=== PATIENT | male | born 1965 | race African-American/Black ===

== ENCOUNTER 2018-01-19 20:07 | Emergency (ER) | payer SELFPAY, OTHER | END 2018-01-19 21:02 | disposition home or self-care (01) | LOC: ER 21:02 | DX: N49.2 Inflammatory disorders of scrotum (principal) | CPT/HCPCS: 99283 ==

== ENCOUNTER 2018-09-11 09:37 | Emergency (ER) | payer SELFPAY ==
[~2018-09-11] VITALS: Ht 170.2 cm; Wt 65.3 kg
[~2018-09-11 09:37] MED LIST: CEPH-263 PO; CEPH500T PO; HYDR-2758 PO; HYDR-2762 PO; SULF1TAB24 PO
[2018-09-11 10:12] VITALS: BP 118/79
[2018-09-11] MEDS ORDERED: LIDOCAINE 1% Multi-Dose 20 ML VIAL. INJ ONE (10:45)
[2018-09-11] MEDS ORDERED: IBUP-1060 PO (11:37)
[2018-09-11] MEDS ORDERED: HYDR-971 PO (11:37)
[2018-09-11] MEDS ORDERED: SULF1TAB24 PO (11:37)
--- NOTE | 2018-09-11 16:41 | PHYS DOC ---
Past Medical History Past Medical History: No Pertinent History Past Surgical History: Other Additional Past Surgical Histo: left knee, left ankle Alcohol Use: Heavy Drug Use: None Adult General Chief Complaint Chief Complaint: BREAST PROBLEM HPI HPI Patient is a 53 year old male who presents with abscess on the chest wall. Patient has had pain and swelling over the anterior chest just beneath the right nipple over the last 2-3 days. He does have a prior history of abscess in the same location for which she has required incision and drainage previously. Today he complains primarily worsening pain and swelling. No fevers. Review of Systems Review of Systems Constitutional: Denies fever Eyes: Denies HENT: Denies Respiratory: Denies Musculoskeletal: Denies back pain Integument: Denies rash Neurologic: Denies headache Endocrine: Denies polyuria or polydipsia All other systems were reviewed and found to be within normal limits, except as documented in this note. Current Medications Current Medications Current Medications Medications (Trade) Dose Ordered Sig/Quiana Start Time Stop Time Status Last Admin Dose Admin Lidocaine HCl (Lidocaine 1% 20ml Vial) 20 ml 1X ONCE 09/11/18 10:45 09/11/18 10:46 DC 09/11/18 10:45 20 ML Allergies Allergies Allergies Coded Allergies Type Severity Reaction Last Updated Verified No Known Drug Allergies 11/01/16 No Physical Exam Physical Exam Constitutional: Well developed, well nourished, no acute distress, non-toxic appearance HENT: Normocephalic, atraumatic, bilateral external ears normal, oropharynx moist Neck: Normal range of motion Cardiovascular:Heart rate regular Skin: Warm, dry, no erythema, no rash, approximately 2-3 cm area of fluctuance under the right nipple and inferior to the nipple. There is local cellulitis. There is no nipple discharge. The wound is not draining. Extremities: No tenderness Neurologic: Alert and oriented X 3 Psychologic: Affect normal Current Patient Data Vital Signs Vital Signs Date Time Temp Pulse Resp B/P (MAP) Pulse Ox O2 Delivery O2 Flow Rate FiO2 09/11/18 10:12 97.9 94 17 118/79 (92) 100 Room Air 97.9 EKG EKG [] Radiology/Procedures Radiology/Procedures [] Course & Med Decision Making Course & Med Decision Making Pertinent Labs and Imaging studies reviewed. (See chart for details) Patient was evaluated in the emergency department for an abscess described above. See the procedure note below. Procedure was completed without difficulty. Patient was discharged to home with medications for pain and antibiotics. He was advised to come back in the next 48 hours to the ER for recheck of the wound. Patient understood the plan of care and was agreeable. His prescribed Jenkins and ibuprofen for pain along with Bactrim. Procedure note: Incision and drainage of abscess. The area was cleansed with iodine. Local anesthesia was provided with 2 mL of 1% lidocaine. A #11 blade scalpel was used to make a 0.5 cm incision at the head of the abscess. There was copious return of purulent fluid. The wound was then marsupialized with curved hemostats. There were several pockets of fluid which were accessed. The wound was then irrigated with normal saline until clear. No packing was placed today. Patient tolerated well. Dragon Disclaimer Dragon Disclaimer This electronic medical record was generated, in whole or in part, using a voice recognition dictation system. Departure Departure Impression: Primary Impression: Acute abscess of areola Disposition: 01 HOME, SELF-CARE Condition: GOOD Referrals: JAYRO SUN MD (PCP) Patient Instructions: Incision and Drainage, Care After, Abscess, Care After Scripts Ibuprofen (IBUPROFEN) 800 Mg Tablet 800 MG PO PRN TID PRN for MODERATE PAIN, #20 TAB take with food or milk to avoid upsetting stomach Prov: BOYD CAROLINA DO 09/11/18 Hydrocodone/Apap 5-325 (NORCO 5-325 TABLET) 1 Each Tablet 1-2 EACH PO PRN Q6HRS PRN for severe pain, #20 as needed for pain Prov: BOYD CAROLINA DO 09/11/18 Sulfamethoxazole/Trimethoprim (BACTRIM DS TABLET) 1 Each Tablet 1 TAB PO BID, #20 TAB Prov: BOYD CAROLINA DO 09/11/18 BOYD CAROLINA DO Sep 11, 2018 16:41
== END 2018-09-11 11:53 | disposition home or self-care (01) ==
LOC: ER 09:37
DX: N61.1 Abscess of the breast and nipple (principal); L02.213 Cutaneous abscess of chest wall; F10.20 Alcohol dependence, uncomplicated; Y90.9 Presence of alcohol in blood, level not specified
CPT/HCPCS: 10060; 99283

== ENCOUNTER 2020-02-07 11:27 | Emergency (ER) | payer SELFPAY ==
[~2020-02-07] VITALS: Ht 170.2 cm; Wt 58.2 kg
[~2020-02-07 11:27] MED LIST changes: -HYDR-2758 PO; +HYDR-2761 PO; -HYDR-2762 PO; +HYDR-2765 PO; +HYDR-3164 PO; +IBUP-1060 PO
[2020-02-07 11:31] VITALS: BP 132/95
[2020-02-07] MEDS ORDERED: DIPH,PERTUSS(ACELL),TET VAC/PF 0.5 ML SYRINGE. VAX IM ONE ×2 (11:46→12:00)
--- NOTE | 2020-02-07 11:51 | PHYS DOC ---
Past Medical History Past Medical History: No Pertinent History Past Surgical History: Other Additional Past Surgical Histo: left knee, left ankle Smoking Status: Never Smoker Alcohol Use: Heavy Drug Use: None General Adult EDM: Chief Complaint: SKIN RASH/ABSCESS HPI: HPI: Patient is a 54 year old AA male who presents to the emergency department with complaints of a dog bite and rash to his left anterior thigh. Patient states that he was bit by a dog three and a half weeks ago on the left anterior thigh. Pt reports the area has been draining yellow pus. He states that the area was also very itchy for the last 4-5 days so he has been scratching at it. He denies any fever, numbness, or tingling. Pt denies any pain at this time. Pt is unsure of when he last tetanus shot was. Pt states that he noticed the rash 4 days ago after scratching it. Review of Systems: Review of Systems: Complete ROS is negative unless otherwise noted in HPI. Heart Score: Risk Factors: Risk Factors: DM, Current or recent (<one month) smoker, HTN, HLP, family history of CAD, obesity. Risk Scores: Score 0 - 3: 2.5% MACE over next 6 weeks - Discharge Home Score 4 - 6: 20.3% MACE over next 6 weeks - Admit for Clinical Observation Score 7 - 10: 72.7% MACE over next 6 weeks - Early Invasive Strategies Allergies: Allergies: Allergies Coded Allergies Type Severity Reaction Last Updated Verified No Known Drug Allergies 11/01/16 No Physical Exam: PE: Constitutional: Well developed, well nourished, no acute distress, non-toxic appearance. [] HENT: Normocephalic, atraumatic, bilateral external ears normal, nose normal. [] Eyes: PERRLA, EOMI, conjunctiva normal, no discharge. [] Neck: Normal range of motion, no stridor. [] Cardiovascular:Heart rate regular rhythm Lungs & Thorax: Respirations even and unlabored, no retractions, no respiratory distress Skin: Warm, dry; 2 puncture wounds to the left anterior thigh with surrounding erythema and purulent drainage, surrounding erythremic maculopapular rash consistent with folliculitis to anterior left thigh. Extremities: LLE:No bony tenderness, no cyanosis, ROM intact, no edema, PMS intact Neurologic: Alert and oriented X 3, no focal deficits noted. [] Psychologic: Affect normal, judgement normal, mood normal. [] EKG: EKG: [] Radiology/Procedures: Radiology/Procedures: [] Course & Med Decision Making: Course & Med Decision Making Pertinent Labs and Imaging studies reviewed. (See chart for details) [] Dragon Disclaimer: Dragon Disclaimer: This electronic medical record was generated, in whole or in part, using a voice recognition dictation system. Departure Departure Impression: Primary Impression: Dog bite of left thigh with infection Qualified Codes: S71.152A - Open bite, left thigh, initial encounter; L08.9 - Local infection of the skin and subcutaneous tissue, unspecified; W54.0XXA - Bitten by dog, initial encounter Additional Impression: Folliculitis Disposition: 01 HOME, SELF-CARE Condition: STABLE Referrals: JAYRO SUN MD (PCP) Patient Instructions: Animal Bite, [id number], Folliculitis Additional Instructions: Fill the prescriptions and use them as directed. May take Tylenol or ibuprofen as needed for pain/fever. Wound care as discussed. Follow-up with a primary care doctor this week for wound recheck. Return to the ER if you develop a fever, or worsening symptoms including increased redness, warmth, or drainage. Scripts Amoxicillin/Potassium Clav (AUGMENTIN 875-125 TABLET) 1 Each Tablet 1 TAB PO BID for 10 Days, #20 TAB 0 Refills Prov: GRIFFIN JAIN APRN 02/07/20 Sulfamethoxazole/Trimethoprim (BACTRIM DS TABLET) 1 Each Tablet 1 TAB PO BID for 10 Days, #20 TAB 0 Refills Prov: GRIFFIN JAIN APRN 02/07/20 GRIFFIN JAIN APRN Feb 07, 2020 11:50
[2020-02-07] MEDS ORDERED: SULF1TAB24 PO (11:56)
[2020-02-07] MEDS ORDERED: AMOX1TAB61 PO (11:57)
[2020-02-07] MEDS ORDERED: MUPIROCIN 2 % TOPICAL CREAM 30GM TUBE. TP SCH (12:00)
== END 2020-02-07 12:09 | disposition home or self-care (01) ==
LOC: ER 11:27
DX: S71.132A Puncture wound without foreign body, left thigh, initial encounter (principal); R21 Rash and other nonspecific skin eruption; F10.10 Alcohol abuse, uncomplicated; Z98.890 Other specified postprocedural states; W54.0XXA Bitten by dog, initial encounter; Y93.89 Activity, other specified; Y92.89 Other specified places as the place of occurrence of the external cause; Y99.8 Other external cause status
CPT/HCPCS: 90471; 90715; 99283; 99285

== ENCOUNTER 2020-02-11 08:00 | Emergency (ER) | payer SELFPAY ==
[~2020-02-11] VITALS: Ht 170.2 cm; Wt 58.7 kg
[~2020-02-11 08:00] MED LIST changes: +AMOX1TAB61 PO
[2020-02-11 09:17] VITALS: BP 137/86
[2020-02-11] MEDS ORDERED: OFLO5DRO EACHEYE (09:42)
[2020-02-11] MEDS ORDERED: METH4TAB2 PO (09:42)
[2020-02-11] MEDS ORDERED: HYDR25TA PO (09:42)
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
[2020-02-11] MEDS ORDERED: DEXAMETHASONE SOD PHOS 20 MG/5 ML VIAL. IM ONE (09:45)
== END 2020-02-11 10:10 | disposition home or self-care (01) ==
LOC: ER 08:00
DX: L25.9 Unspecified contact dermatitis, unspecified cause (principal); H10.33 Unspecified acute conjunctivitis, bilateral; L40.9 Psoriasis, unspecified; F10.20 Alcohol dependence, uncomplicated; Y90.9 Presence of alcohol in blood, level not specified; F17.210 Nicotine dependence, cigarettes, uncomplicated
CPT/HCPCS: 96372; 99283; J1100

== ENCOUNTER 2020-02-21 16:58 | Emergency (ER) | payer SELFPAY ==
[~2020-02-21] VITALS: Ht 170.2 cm; Wt 63.0 kg
[~2020-02-21 16:58] MED LIST changes: +HYDR25TA PO; +METH4TAB2 PO; +OFLO5DRO EACHEYE
[2020-02-21 17:05] VITALS: BP 126/75
[2020-02-21] MEDS ORDERED: PRED20TA PO (17:46)
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
== END 2020-02-21 18:07 | disposition home or self-care (01) ==
LOC: ER 16:58
DX: L23.3 Allergic contact dermatitis due to drugs in contact with skin (principal); T38.0X5A Adverse effect of glucocorticoids and synthetic analogues, initial encounter; F17.200 Nicotine dependence, unspecified, uncomplicated; Z98.890 Other specified postprocedural states; Y92.89 Other specified places as the place of occurrence of the external cause
CPT/HCPCS: 99283

== ENCOUNTER 2020-06-24 02:38 | Emergency (ER) | payer SELFPAY ==
[~2020-06-24] VITALS: Ht 170.2 cm; Wt 69.0 kg
[~2020-06-24 02:38] MED LIST changes: +PRED20TA PO
[2020-06-24] MEDS ORDERED: PRED20TA PO (04:20)
[2020-06-24] MEDS ORDERED: HYDR25CA PO (04:20)
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
[2020-06-24 05:12] VITALS: BP 147/94
== END 2020-06-24 05:12 | disposition home or self-care (01) ==
LOC: ER 02:38
DX: L23.9 Allergic contact dermatitis, unspecified cause (principal); R21 Rash and other nonspecific skin eruption; Z98.890 Other specified postprocedural states; Z87.891 Personal history of nicotine dependence
CPT/HCPCS: 99283